=== PATIENT | male | born 1960 | race African-American/Black ===

== ENCOUNTER 2018-05-30 21:48 | Emergency (ER) | payer MEDICAID ==
[~2018-05-30] VITALS: Ht 185.4 cm; Wt 63.2 kg
[2018-05-31] MEDS ORDERED: KETOROLAC 60MG/2ML VIAL IM STA (01:37)
[2018-05-31] MEDS ORDERED: CYCLOBENZAPRINE 10MG TABLET PO ONE (01:45)
[2018-05-31 03:48] VITALS: BP 130/80
== END 2018-05-31 03:53 | disposition home or self-care (01) ==
LOC: ER 21:48
DX: M43.6 Torticollis (principal); M13.88 Other specified arthritis, other site; M62.838 Other muscle spasm; M54.2 Cervicalgia; F17.200 Nicotine dependence, unspecified, uncomplicated; Z88.5 Allergy status to narcotic agent
CPT/HCPCS: 72125; 96372; 99284; J1885